=== PATIENT | male | born 1960 | race Caucasian/White ===

== ENCOUNTER 2021-11-08 08:26 | Day surgery (SDC) | payer BC ==
[~2021-11-08] VITALS: Ht 182.9 cm; Wt 98.0 kg
[2021-11-08] VITALS (9 sets, daily range): BP systolic 121–140; BP diastolic 67–92
[2021-11-08] MEDS ORDERED: LISI5TAB22 PO (08:58)
[2021-11-08] MEDS ORDERED: NORT10CA2 PO (08:58)
[2021-11-08] MEDS ORDERED: ACET-1025 PO (09:03)
[2021-11-08 11:16] LABS: GLUCOSE,CSF 59 MG/DL (40-75); TOTAL PROTEIN,CSF 83 MG/DL (30-60)
[2021-11-08 11:30] LABS: APPEARANCE,CSF CLEAR; CSF SUPERNATANT COLOR COLORLESS; CSF VOLUME 18 ML; TUBE# COUNTED 1
[2021-11-08 11:38] LABS: CSF RBC 1 /CU MM (0)
[2021-11-08 11:39] LABS: APPEARANCE,CSF CLEAR; CSF SUPERNATANT COLOR COLORLESS; CSF VOLUME 18 ML; CSF WBC CT 1 /CU MM (0-5)
[2021-11-08 11:40] LABS: CSF RBC 0 /CU MM (0); CSF WBC CT 0 /CU MM (0-5); TUBE# COUNTED 4
[2021-11-09 12:30] LABS: IMMUNOGLOBULIN G, QN, SERUM 906 mg/dL (603-1613)
[2021-11-10 19:42] LABS: CRYPTOCOCCUS ANTIGEN, CSF Negative (Negative)
[2021-11-11 11:13] LABS: IMMUNOGLOBULIN G, QN CSF 4.1 mg/dL (0.0-10.3)
== END 2021-11-08 12:35 | disposition home or self-care (01) ==
LOC: SSTAY O 08:26
PROVIDERS: ATTEND Psychiatry & Neurology Neurology
DX: R90.82 White matter disease, unspecified (principal); G44.52 New daily persistent headache (NDPH); I10 Essential (primary) hypertension; Z98.52 Vasectomy status; Z79.899 Other long term (current) drug therapy
CPT/HCPCS: 36415; 62328; 82040; 82042; 82164; 82784; 82945; 83873; 83916; 84157; 86256; 86617; 87102; 87476; 87899; 89051